=== PATIENT | female | born 1995 | race American Indian/Alaskan Native ===

== ENCOUNTER 2017-12-24 19:36 | Emergency (ER) | payer MEDICAID ==
[2017-12-24 19:47] VITALS: TEMP 98.6
--- NOTE | 2017-12-24 20:30 | C.PDOC ---
History Of Present Illness 22 year old female patient presents to the ER with tenderness to the left mastoid area for the last 5 days. Patient reports pain is digitally and positionally reproducible. Patient denies injury, fall, trauma, headache, nausea , vomit. Time Seen by Provider: 12/24/17 19:54 Chief Complaint (Nursing): Weakness/Neurological Deficit History/Exam Limitations: no limitations Onset/Duration Of Symptoms: Days Current Symptoms Are (Timing): Still Present Associated Symptoms Preceding Syncopal Episode: Other (neck pain) Fall Associated With With Symptoms: No Recent travel outside of the [place]: No Additional History Per: Patient Past Medical History Reviewed: Historical Data, Nursing Documentation, Vital Signs Vital Signs: Last Vital Signs Temp 98.6 F 12/24/17 20:36 Pulse 75 12/24/17 20:36 Resp 18 12/24/17 20:36 BP 120/82 12/24/17 20:36 Pulse Ox 99 12/25/17 01:30 - Medical History PMH: Asthma Surgical History: No Surg Hx Family History: States: No Known Family Hx - Social History Hx Alcohol Use: No Hx Substance Use: No - Immunization History Hx Tetanus Toxoid Vaccination: No Hx Influenza Vaccination: No Hx Pneumococcal Vaccination: No Review Of Systems Except As Marked, All Systems Reviewed And Found Negative. Musculoskeletal: Positive for: Neck Pain, Other (tenderness to left mastoid pain ) Physical Exam - Physical Exam Appears: Non-toxic, No Acute Distress Skin: Normal Color, Warm, Dry Head: Atraumatic, Normacephalic Eye(s): bilateral: Normal Inspection Ear(s): Bilateral: Normal Nose: Normal Oral Mucosa: Moist Throat: Normal Neck: Normal ROM, Supple, Other (tenderness external claidomastoid) Chest: Symmetrical Cardiovascular: Rhythm Regular Respiratory: Normal Breath Sounds, No Rales, No Rhonchi, No Wheezing Gastrointestinal/Abdominal: Soft, No Tenderness, No Guarding, No Rebound Back: Normal Inspection Extremity: Normal ROM (x4) Neurological/Psych: Oriented x3, Normal Speech Gait: Steady ED Course And Treatment O2 Sat by Pulse Oximetry: 99 (RA) Pulse Ox Interpretation: Normal Medical Decision Making Medical Decision Making: exam with nurse Lexa, mild excoriated ear canals b/l, no otitis externa tendrness mild L SCM digitally and positionally reproducable point tender @ L temporal scalp, no lesions. anxiety, SCM strain motrin/ice. Disposition Doctor Will See Patient In The: Office Counseled Patient/Family Regarding: Studies Performed, Diagnosis - Disposition Referrals: Josselin Monroe MD [Medical Doctor] - Disposition: HOME/ ROUTINE Disposition Time: 20:29 Condition: GOOD Additional Instructions: continue ibuprofeno/advil 400-600 mg every 6 hours as needed for L neck muscle strain discomfort no heat/hot water/hot showers ice packs 1/2 hour per hour Follow-up with your PMD as needed. Instructions: Muscle Strain (DC), Cervical Muscle Strain (DC) Forms: [employer] (Italian) - Clinical Impression Clinical Impression: Neck muscle strain - Scribe Statement The provider has reviewed the documentation as recorded by the Elvis Delgado Do Provider Attestation: All medical record entries made by the Scribe were at my direction and personally dictated by me. I have reviewed the chart and agree that the record accurately reflects my personal performance of the history, physical exam, medical decision making, and the department course for this patient. I have also personally directed, reviewed, and agree with the discharge instructions and disposition.
[2017-12-24 20:36] VITALS: BP 120/82; PULSE 75; RESP 18
[2017-12-25 01:23] VITALS: O2SAT 99
== END 2017-12-24 20:42 | disposition home or self-care (01) ==
LOC: C.ER 19:36
DX: S16.1XXA Strain of muscle, fascia and tendon at neck level, initial encounter (principal); X58.XXXA Exposure to other specified factors, initial encounter

== ENCOUNTER 2018-05-27 10:34 | Emergency (ER) | payer MEDICAID ==
[2018-05-27 10:39] VITALS: BMI 23.8
[2018-05-27 10:44] VITALS: O2SAT 100
[2018-05-27] MEDS ORDERED: Sodium Chloride 0.9% 1,000 ML IV ONE (11:06)
[2018-05-27] MEDS ORDERED: Sodium Chloride 0.9% 1,000 ML ONE (11:17)
--- NOTE | 2018-05-27 11:18 | C.PDOC ---
History Of Present Illness 23 y/o female, w/PMhx of GERD, presents to the ER complaining of abdominal pain which began earlier today. Patient states that she was prescribed Zantac by her PMD and she is supposed to take Zantac with every meal. She notes that her last meal was at 12 am and she did not take Zantac with the meal.Denies having fever, chills, nausea, vomiting, diarrhea, dysuria, and hematuria. <Romina Godoy - Last Filed: 05/27/18 15:30> History Per: Patient History/Exam Limitations: no limitations Onset/Duration Of Symptoms: Hrs Current Symptoms Are (Timing): Still Present Severity: Moderate Associated Symptoms: denies: Fever, Chills, Nausea, Vomiting, Urinary Symptoms <Romina Godoy - Last Filed: 05/27/18 15:30> <Barron Quinones - Last Filed: 05/31/18 10:40> Time Seen by Provider: 05/27/18 10:55 Chief Complaint (Nursing): Abdominal Pain Past Medical History Reviewed: Historical Data, Nursing Documentation, Vital Signs Vital Signs: Last Vital Signs Temp 97.9 F 05/27/18 10:43 Pulse 78 05/27/18 10:43 Resp 18 05/27/18 10:43 BP 126/74 05/27/18 10:43 Pulse Ox 100 05/27/18 10:43 - Medical History PMH: Asthma, GERD Other Surgeries: Hx of surgeries Family History: States: No Known Family Hx - Social History Hx Alcohol Use: No Hx Substance Use: No - Immunization History Hx Tetanus Toxoid Vaccination: No Hx Influenza Vaccination: No Hx Pneumococcal Vaccination: No <Romina Godoy - Last Filed: 05/27/18 15:30> Vital Signs: Last Vital Signs Temp 98.8 F 05/27/18 13:03 Pulse 72 05/27/18 13:03 Resp 16 05/27/18 13:03 BP 119/69 05/27/18 13:03 Pulse Ox 100 05/27/18 15:35 <Barron Quinones - Last Filed: 05/31/18 10:40> Review Of Systems Except As Marked, All Systems Reviewed And Found Negative. Constitutional: Negative for: Fever, Chills Gastrointestinal: Positive for: Abdominal Pain. Negative for: Nausea, Vomiting, Diarrhea Genitourinary: Negative for: Dysuria, Hematuria, Vaginal Discharge, Vaginal Bleeding <Romina Godoy Last Filed: 05/27/18 15:30> Physical Exam - Physical Exam Appears: Non-toxic, No Acute Distress Skin: Normal Color, Warm, Dry Head: Atraumatic, Normacephalic Eye(s): bilateral: Normal Inspection Nose: Normal Oral Mucosa: Moist Neck: Supple Chest: Symmetrical Cardiovascular: Rhythm Regular Respiratory: Normal Breath Sounds, No Rales, No Rhonchi, No Wheezing Gastrointestinal/Abdominal: Soft, Tenderness (epigastric tenderness), No Guarding, No Rebound Neurological/Psych: Oriented x3, Normal Speech <Romina Godoy Last Filed: 05/27/18 15:30> ED Course And Treatment - Laboratory Results Result Diagrams: 05/27/18 11:29 05/27/18 11:29 O2 Sat by Pulse Oximetry: 100 (RA) Pulse Ox Interpretation: Normal <Romina Gdooy Last Filed: 05/27/18 15:30> - Laboratory Results Result Diagrams: 05/27/18 11:29 05/27/18 11:29 <Barron Quinones - Last Filed: 05/31/18 10:40> Medical Decision Making Medical Decision Making: Impression: Abdominal Pain Plan: * Labs * UA * Pepcid IV * IV Fluids Progress: Labs reviewed and unremarkable. Patient remained afebrile and in no acute distress. Patient reports no abdominal pain at this time. She is stable for discharge <Romina Godoy - Last Filed: 05/27/18 15:30> Disposition Counseled Patient/Family Regarding: Diagnosis, Need For Followup - Disposition Disposition Time: 12:40 - POA Present On Arrival: None <Romina Godoy - Last Filed: 05/27/18 15:30> <Barron Quinones - Last Filed: 05/31/18 10:40> - Disposition Referrals: Josselin Monroe MD [Medical Doctor] - Disposition: HOME/ ROUTINE Condition: STABLE Additional Instructions: Please follow up with your gastro specialist Continue with your usual medications Instructions: Acid Reflux (Gastroesophageal Reflux Disease), Adult (DC) - Clinical Impression Clinical Impression: Gastroesophageal reflux disease - PA / TEAM GUIDE / Resident Statement /DO has reviewed & agrees with the documentation as recorded. - Scribe Statement The provider has reviewed the documentation as recorded by the Gonzalezibe Marifer Cherry Provider Attestation All medical record entries made by the Gonzalezibe were at my direction and personally dictated by me. I have reviewed the chart and agree that the record accurately reflects my personal performance of the history, physical exam, medical decision making, and the department course for this patient. I have also personally directed, reviewed, and agree with the discharge instructions and disposition. <Romina Godoy - Last Filed: 05/27/18 15:30>
[2018-05-27 11:33] LABS: BASO % 0.6 % (0.0-2.0); EOS # 0.2 K/uL (0.0-0.7); EOS % 3.2 % (0.0-4.0); HEMOGLOBIN 12.2 g/dL (11.0-16.0); LYMPH # 2.3 K/uL (1.0-4.3); LYMPH % 30.9 % (20.0-40.0); MEAN CELL VOLUME 88.3 fL (81.0-99.0); MEAN CORPUSCULAR HEMOGLOBIN 29.5 pg (27.0-31.0); MEAN CORPUSCULAR HGB CONC 33.4 g/dL (33.0-37.0); MEAN PLATELET VOLUME 8.6 fL (7.2-11.7); MONO # 0.5 K/uL (0.0-0.8); NEUT # 4.4 K/uL (1.8-7.0); NEUT % 58.3 % (50.0-75.0); NRBC % 0.1 % (0.0-2.0); RBC 4.13 Mil/uL (3.80-5.20); RED CELL DISTRIBUTION WIDTH 14.7 % (11.5-14.5); WHITE BLOOD COUNT 7.5 K/uL (4.8-10.8)
[2018-05-27 11:38] LABS: SQUAMOUS EPITHIAL 9 /hpf (0-5); URINE BILIRUBIN NEGATIVE (NEGATIVE); URINE BLOOD NEGATIVE (NEGATIVE); URINE CLARITY Clear (Clear); URINE COLOR Yellow (YELLOW); URINE GLUCOSE (UA) NORMAL (Normal); URINE LEUKOCYTE ESTERASE NEG Leu/uL (Negative); URINE PROTEIN NEGATIVE (NEGATIVE); URINE UROBILINOGEN NORMAL mg/dL (0.2-1.0)
[2018-05-27 12:27] LABS: ALB/GLOB RATIO 1.5 (1.0-2.1); ALBUMIN 4.8 g/dL (3.5-5.0); ALT/SGPT 32 U/L (9-52); AST/SGOT 60 U/L (14-36); BLOOD UREA NITROGEN 9 mg/dL (7-17); CALCIUM 9.4 mg/dl (8.6-10.4); GFR NON-AFRICAN AMERICAN > 60
[2018-05-27 12:28] LABS: LIPASE 193 U/L (23-300)
[2018-05-27 13:08] VITALS: BP 119/69; PULSE 72; RESP 16; TEMP 98.8
== END 2018-05-27 13:03 | disposition home or self-care (01) ==
LOC: C.ER 10:34
DX: K21.9 Gastro-esophageal reflux disease without esophagitis (principal)
CPT/HCPCS: 80053; 81001; 83690; 85025; 99284; J7030

== ENCOUNTER 2018-10-09 13:16 | Emergency (ER) | payer MEDICAID | END 2018-10-09 14:52 | disposition home or self-care (01) | LOC: C.ER 13:16 ==